=== PATIENT | female | born 1960 ===

== ENCOUNTER 2022-01-11 04:34 | Day surgery (SDC) | payer OTHER ==
[2022-01-08 16:16] VITALS: BMI 25.1
[2022-01-11 09:53] VITALS: TEMP 97.5
[2022-01-11 10:48] VITALS: BP 120/83; PULSE 72
== END 2022-01-11 10:55 | disposition home or self-care (01) ==
LOC: JASU-ENDO 04:34
PROVIDERS: ATTEND Internal Medicine Gastroenterology
PROC: 0DBN8ZX Excision of Sigmoid Colon, Via Natural or Artificial Opening Endoscopic, Diagnostic (ICD-10-PCS; 2022-01-11)
PROC: 0DBP8ZX Excision of Rectum, Via Natural or Artificial Opening Endoscopic, Diagnostic (ICD-10-PCS; principal; 2022-01-11 10:15)
DX: Z12.11 Encounter for screening for malignant neoplasm of colon (principal); K58.0 Irritable bowel syndrome with diarrhea
CPT/HCPCS: 88305-TC